=== PATIENT | male | born 1970 | race African-American/Black ===

== ENCOUNTER 2019-01-14 06:29 | Emergency (ER) | payer OTHER ==
[~2019-01-14] VITALS: Ht 175.3 cm; Wt 90.9 kg
[2019-01-14] MEDS ORDERED: ACETAMINOPHEN 325 MG TAB PO ONE (07:15)
[2019-01-14] MEDS ORDERED: KETOROLAC 30 MG/ML VIAL (J1885) IV ONE (07:15)
[2019-01-14] MEDS ORDERED: NS 1,000 ML IV ONE ×3 (07:15→10:45)
[2019-01-14] MEDS ORDERED: IPRATROPIUM 0.5MG/ALBUTEROL 2.5MG INH SOL UD 3ML (DUONEB)(J7620) NEB ONE (07:15)
[2019-01-14 07:40] LABS: VENOUS BASE EXCESS -0.4 (-2.0-2.0); VENOUS HCO3 24.4 MEQ/L (23.0-27.0); VENOUS O2 SATURATION 45.4 % (60.0-80.0); VENOUS PARTIAL PRESSURE CO2 40.6 mmHg (38.0-50.0); VENOUS PARTIAL PRESSURE O2 25.1 mmHg (30.0-50.0); VENOUS PH 7.396 UNITS (7.330-7.430); VENOUS STANDARD HCO3 22.7 MEQ/L; VENOUS TOTAL CO2 25.6 MEQ/L (24.0-28.0)
[2019-01-14 07:49] LABS: BASO % 0.2 % (0.0-1.0); HEMATOCRIT 43.4 % (42.0-52.0); HEMOGLOBIN 15.4 g/dl (13.5-17.5); LYMPH # 1.4 10^3/uL (1.5-4.5); LYMPH % 26.1 % (24.0-44.0); MEAN CORPUSCULAR HEMOGLOBIN 29.1 pg (27.0-33.0); MEAN CORPUSCULAR HGB CONC 35.5 g/dl (32.0-36.5); MEAN CORPUSCULAR VOLUME 81.9 fl (80.0-96.0); MONO # 0.4 10^3/uL (0.0-0.8); MONO % 6.4 % (0.0-5.0); NEUTROPHILS # 3.7 10^3/uL (1.8-7.7); NEUTROPHILS % 66.9 % (36.0-66.0); WHITE BLOOD COUNT 5.5 10^3/uL (4.0-10.0)
[2019-01-14 08:01] LABS: INR 0.89; PROTHROMBIN TIME 12.1 SECONDS (12.1-14.4)
[2019-01-14 08:18] LABS: PLATELET COUNT, AUTOMATED 90 10^3/uL (150-450)
--- NOTE | 2019-01-14 08:19 | ECGEPIP ---
[facility] - ED Test Date: 2019-01-14 Pat Name: CHRISTINE PARTIDA Department: Room: - Gender: Male [employer]: nikolas : 1970 Requested By: OLI AUSTIN Order Number: [id number] Reading MD: Damián Ray Measurements Intervals [place] Rate: 83 P: 74 [place]: 169 QRS: 22 QRSD: 94 T: 57 QT: 341 QTc: 401 Interpretive Statements SINUS RHYTHM NO PRIORS FOR COMPARISON Electronically Signed on 01-14-2019 8:18:50 EDT by Damián Ray
[2019-01-14 08:21] LABS: ALBUMIN 3.7 GM/DL (3.2-5.2); ALT/SGPT 47 U/L (12-78); BILIRUBIN,DIRECT 0.1 MG/DL (0.0-0.2); BILIRUBIN,TOTAL 0.5 MG/DL (0.2-1.0); BLOOD UREA NITROGEN 13 MG/DL (7-18); CALCIUM LEVEL 8.4 MG/DL (8.5-10.1); CARBON DIOXIDE LEVEL 26 MEQ/L (21-32); CHLORIDE LEVEL 103 MEQ/L (98-107); CK-MB VALUE MASS < 1.0 NG/ML (<3.6); CPK CREATINE PHOSPHOKINASE 288 U/L (39-308); CREATININE FOR GFR 1.43 MG/DL (0.70-1.30); GLOMERULAR FILTRATION RATE > 60.0 (>60); GLUCOSE, FASTING 86 MG/DL (70-100); MB/CK RELATIVE INDEX 0.35 (< OR =4); NT-PRO BNP 76 PG/ML (<125); POTASSIUM SERUM 3.5 MEQ/L (3.5-5.1); SODIUM LEVEL 137 MEQ/L (136-145); TROPONIN I 0.02 NG/ML (< 0.10)
--- NOTE | 2019-01-14 09:08 | REP ---
PORTABLE CHEST, SINGLE VIEW: There is no evidence of acute infiltrate. No pleural effusion is seen. The heart is normal in size. The mediastinal silhouette is unremarkable. The visualized osseous structures are intact. IMPRESSION: No acute pulmonary disease. Electronically Signed by Jabier Joshi MD 01/14/2019 04:25 P
[2019-01-14 12:49] VITALS: BP 128/83
== END 2019-01-14 12:53 | disposition home or self-care (01) ==
LOC: M ED 06:29
DX: J06.9 Acute upper respiratory infection, unspecified (principal); E11.9 Type 2 diabetes mellitus without complications; F17.200 Nicotine dependence, unspecified, uncomplicated
CPT/HCPCS: 71045; 80048; 80076; 81001; 82550; 82553; 82803; 83605; 83880; 84443; 84484; 85025; 85049; 85055; 85610; 87040; 87486; 87581; 87633; 87798; 93005; 93041; 94640; 96361; 96374; 99285; J1885